=== PATIENT | male | born 1945 | race Hispanic/Latino ===

== ENCOUNTER → 2023-11-06 | Outpatient (CLI) | payer OTHER | END | disposition home or self-care (01) | LOC: OIH 10:34 | PROVIDERS: ATTEND Internal Medicine | DX: Z13.6 Encounter for screening for cardiovascular disorders (principal); K44.9 Diaphragmatic hernia without obstruction or gangrene | CPT/HCPCS: 75571 ==

== ENCOUNTER → 2023-12-05 | Outpatient (CLI) | payer OTHER | END | disposition home or self-care (01) | LOC: RAH 12:42 | PROVIDERS: ATTEND Internal Medicine | DX: I51.7 Cardiomegaly (principal); Z86.73 Personal history of transient ischemic attack (TIA), and cerebral infarction without residual deficits; I35.1 Nonrheumatic aortic (valve) insufficiency | CPT/HCPCS: 70450; 93306; 93880 ==

== ENCOUNTER → 2024-01-31 | Outpatient (CLI) | payer OTHER | END | disposition home or self-care (01) | LOC: RAH 09:34 | PROVIDERS: ATTEND Nurse Practitioner Family | DX: F10.20 Alcohol dependence, uncomplicated (principal) | CPT/HCPCS: 76700 ==

== ENCOUNTER → 2024-02-18 | Outpatient (CLI) | payer OTHER ==
[~2024-02-18] MED LIST: ASPI-1443 PO; LISI1TAB51 PO; METF-446 PO; MULT-1367 PO; OMEGA 3 PO; ROSU5TAB43 PO
[2024-02-18 12:18] LABS: CREATININE 1.3 mg/dL (0.5-1.3); POTASSIUM 4.1 mmol/L (3.5-5.1)
== END | disposition home or self-care (01) ==
LOC: LAB 08:39
PROVIDERS: ATTEND Internal Medicine Cardiovascular Disease
DX: G45.9 Transient cerebral ischemic attack, unspecified (principal)
CPT/HCPCS: 36415; 80048

== ENCOUNTER 2024-02-20 07:25 | Day surgery (SDC) | payer OTHER ==
[2024-02-19 09:13] LABS: BASOPHILS # (AUTO) 0.06 K/uL (0.00-0.20); BASOPHILS % (AUTO) 0.9 % (0.0-5.0); EOSINOPHILS # (AUTO) 0.18 K/uL (0.00-0.70); EOSINOPHILS % (AUTO) 2.7 % (0.0-8.0); HEMATOCRIT 40.1 % (42-54); IMMATURE GRANULOCYTE ABSOLUTE 0.02 K/uL (0-1); LYMPHOCYTES # (AUTO) 1.5 K/uL (1.0-4.8); LYMPHOCYTES % (AUTO) 21.4 % (21.0-51.0); MEAN CORPUSCULAR HEMOGLOBIN 29.1 pg (27.0-33.0); MEAN CORPUSCULAR HGB CONC 32.4 g/dL (32.0-36.0); MEAN CORPUSCULAR VOLUME 89.9 fL (79-99); MONOCYTES # (AUTO) 0.4 K/uL (0.1-1.0); MONOCYTES % (AUTO) 6.2 % (3.0-13.0); NEUTROPHILS # (AUTO) 4.7 K/uL (1.8-7.7); NEUTROPHILS % (AUTO) 68.5 % (40.0-77.0); PLATELET COUNT (AUTO) 231 K/uL (130-400); RED BLOOD CELL COUNT(AUTO) 4.46 MIL/uL (4.50-6.20); RED CELL DISTRIBUTION WIDTH 13.5 % (11.0-15.5); WHITE BLOOD COUNT (AUTO) 6.8 K/uL (4.8-10.8)
[2024-02-19 09:20] VITALS: BP 137/63; PULSE 60; RESP 18; TEMP 97.7
[2024-02-19 09:24] LABS: CREATININE 1.4 mg/dL (0.5-1.3)
[2024-02-19 09:29] LABS: INR 0.99 (0.85-1.15); PROTHROMBIN TIME 10.7 SEC (9.6-11.6)
[2024-02-19 09:31] LABS: PARTIAL THROMBOPLASTIN TIME 28.3 SEC (26.3-35.5)
[2024-02-20] VITALS (7 sets, daily range): BP systolic 108–124; BP diastolic 57–63; PULSE 50–62; RESP 12–15; TEMP 97.2–98.3
[~2024-02-20] VITALS: Ht 177.8 cm; Wt 90.9 kg
[2024-02-20] MEDS: LIDOCAINE HCL 2% VISCOUS 15 ML UDCUP PO ONE (08:00)
[2024-02-20] MEDS: 0.9%NACL 1000ML 1,000 ML IV ONE (09:58)
[2024-02-20] MEDS: FENTanyl CITRate PF 50 MCG/1 ML 2ML VIAL IVP ONE (12:01)
[2024-02-20] MEDS: MIDAZOLAM HCL 1 MG/ML 2ML VIAL IVP ONE (12:03)
== END 2024-02-20 12:30 | disposition home or self-care (01) ==
LOC: DAH 07:25 → EDSTATUS 09:00 → DAH 12:30
PROVIDERS: ATTEND Internal Medicine Cardiovascular Disease
DX: G45.9 Transient cerebral ischemic attack, unspecified (principal); I37.1 Nonrheumatic pulmonary valve insufficiency; I44.0 Atrioventricular block, first degree; I34.0 Nonrheumatic mitral (valve) insufficiency; I10 Essential (primary) hypertension; E11.9 Type 2 diabetes mellitus without complications; K21.9 Gastro-esophageal reflux disease without esophagitis; I70.0 Atherosclerosis of aorta; E78.5 Hyperlipidemia, unspecified; Z79.82 Long term (current) use of aspirin; Z79.84 Long term (current) use of oral hypoglycemic drugs; Z98.41 Cataract extraction status, right eye; Z79.899 Other long term (current) drug therapy
CPT/HCPCS: 80048; 85025; 85610; 85730; 36415; 93005; 82948; 93325; 93312; J3010; J7030; J2250; A4615; A4215; A4223 ×3; A4657; A7002; A4222; A4221; A4663; A4216; A4606; 99152; G0500

== ENCOUNTER → 2024-02-22 | Outpatient (CLI) | payer OTHER ==
[~2024-02-22] MED LIST changes: +IOHEXOL-350 75 ML VIAL IV ONE
== END | disposition home or self-care (01) ==
LOC: RAH 09:07
PROVIDERS: ATTEND Internal Medicine Cardiovascular Disease
DX: G45.9 Transient cerebral ischemic attack, unspecified (principal)
CPT/HCPCS: 70496; 70498; Q9967

== ENCOUNTER → 2024-02-28 | Outpatient (CLI) | payer OTHER ==
[~2024-02-28] MED LIST changes: -IOHEXOL-350 75 ML VIAL IV ONE
[2024-02-28 12:24] LABS: CREATININE 1.3 mg/dL (0.5-1.3); POTASSIUM 4.2 mmol/L (3.5-5.1)
== END | disposition home or self-care (01) ==
LOC: LAB 09:39
PROVIDERS: ATTEND Internal Medicine Cardiovascular Disease
DX: G45.9 Transient cerebral ischemic attack, unspecified (principal)
CPT/HCPCS: 36415; 80048

== ENCOUNTER → 2024-06-18 | Outpatient (CLI) | payer OTHER ==
[~2024-06-18] MED LIST changes: -ROSU5TAB43 PO; +ROSU5TAB51 PO
--- NOTE | 2024-06-18 12:54 | HMCIMG ---
UPPER GI TRACT, WO KUB REASON: Diaphragmatic hernia without obstruction or gangrene COMPARISON: None TECHNIQUE: Air contrast upper GI was performed to with fluoroscopic guidance. 9 short cine sequences were acquired. Fluoroscopy time was 0.7 minutes. FINDINGS: There is normal esophageal peristalsis. There is a moderate to hiatal hernia. Esophagus, stomach and duodenum appear otherwise unremarkable. There is no mass, ulceration or obstructing lesion. There is some mild gastroesophageal reflux during the exam. IMPRESSION: 1. Moderate to sized hiatal hernia with some mild intermittent reflux. 2. Otherwise unremarkable exam.
== END | disposition home or self-care (01) ==
LOC: RAH 06-10 08:54
PROVIDERS: ATTEND Internal Medicine
DX: K44.9 Diaphragmatic hernia without obstruction or gangrene (principal); K21.9 Gastro-esophageal reflux disease without esophagitis
CPT/HCPCS: 74240

== ENCOUNTER 2024-09-04 07:23 | Observation (INO) | payer OTHER ==
[2024-09-03 15:42] VITALS: BP 151/58; PULSE 60; RESP 18; TEMP 98.1
[2024-09-03 15:51] LABS: HEMATOCRIT 39.5 % (42-54); MEAN CORPUSCULAR HEMOGLOBIN 29.5 pg (27.0-33.0); MEAN CORPUSCULAR HGB CONC 32.7 g/dL (32.0-36.0); MEAN CORPUSCULAR VOLUME 90.2 fL (79-99); PLATELET COUNT (AUTO) 206 K/uL (130-400); RED BLOOD CELL COUNT(AUTO) 4.38 MIL/uL (4.50-6.20); RED CELL DISTRIBUTION WIDTH 13.7 % (11.0-15.5); WHITE BLOOD COUNT (AUTO) 5.8 K/uL (4.8-10.8)
[2024-09-03 16:02] LABS: CREATININE 1.3 mg/dL (0.5-1.3); POTASSIUM 4.3 mmol/L (3.5-5.1)
[2024-09-03 16:22] LABS: BASOPHILS # (AUTO) 0.02 K/uL (0.00-0.20); BASOPHILS % (AUTO) 0.3 % (0.0-5.0); EOSINOPHILS # (AUTO) 0.11 K/uL (0.00-0.70); EOSINOPHILS % (AUTO) 1.9 % (0.0-8.0); IMMATURE GRANULOCYTE ABSOLUTE 0.01 K/uL (0-1); LYMPHOCYTES # (AUTO) 1.4 K/uL (1.0-4.8); LYMPHOCYTES % (AUTO) 23.3 % (21.0-51.0); MONOCYTES # (AUTO) 0.4 K/uL (0.1-1.0); MONOCYTES % (AUTO) 6.3 % (3.0-13.0)
[~2024-09-04] VITALS: Ht 177.8 cm; Wt 89.9 kg
[2024-09-04] VITALS (20 sets, daily range): BP systolic 102–140; BP diastolic 46–67; PULSE 58–66; RESP 15–18; TEMP 97.3–98.2; O2SAT 97–99
[~2024-09-04 07:23] MED LIST changes: +GLIM2TAB30 PO; +PANT40TA54 PO; +PROBIOTIC PO
[2024-09-04] MEDS: metRONIDazole 500MG/100ML BAG 200 ML ONE (07:56)
[2024-09-04] MEDS: ceFAZolin SODIUM 2 GM VIAL ONE (07:56)
[2024-09-04] MEDS: 0.9%NACL 1000ML 1,000 ML IV ONE (07:56)
[2024-09-04] MEDS ORDERED: LIDOCAINE PF 100MG/5ML (2%) SYRINGE 5ML ONE (11:31)
[2024-09-04] MEDS ORDERED: dexaMETHasone SOD PHOSPHATE 10MG/ML 1ML VIAL ONE (11:31)
[2024-09-04] MEDS ORDERED: proPOFol 10 MG/ML 20ML VIAL IV ONE (11:32)
[2024-09-04] MEDS ORDERED: GLYCOPYRROLATE 0.2 MG/ML 5 ML VIAL ONE (11:32)
[2024-09-04] MEDS ORDERED: FENTanyl CITRate PF 50 MCG/1 ML 5ML AMP IV ONE (11:32)
[2024-09-04] MEDS ORDERED: NEOSTIGMINE METHYLSULFATE 1MG/ML IV ONE (11:32)
[2024-09-04] MEDS ORDERED: ondanSETRON 4MG INJ ONE (11:32)
[2024-09-04] MEDS ORDERED: rocuRONium bROMide 10MG/1ML 5ML VL ONE (11:32)
[2024-09-04] MEDS ORDERED: MIDAZOLAM HCL 1 MG/ML 2ML VIAL ONE (11:33)
[2024-09-04] MEDS ORDERED: BUPIvacaine/PF 0.5% 30ML VIAL ONE (12:23)
[2024-09-04] MEDS ORDERED: ALBUMIN (HUMAN) 5% 250 ML IV ONE (12:33)
[2024-09-04] MEDS ORDERED: ketaMINE 50MG/ML SYRINGE 50 MG/ML DISP.SYRIN ONE (12:33)
[2024-09-04] MEDS: ceFAZolin SODIUM 2 GM VIAL IVPB ONE (12:40)
--- NOTE | 2024-09-04 15:41 | OP ---
Operative Note: DATE OF PROCEDURE: 09/04/24 SURGEON: TAMIA ESPOSITO MD CHILD SUPPORT AGENT: Mendoza Esposito MD PAAlmitaC ANESTHESIA: General and Local ANESTHESIOLOGIST/STAFFING MANAGER: [facility] [place] team PREOPERATIVE DIAGNOSIS: Symptomatic cholelithiasis and symptomatic [id number] paraesophageal hiatal hernia POSTOPERATIVE DIAGNOSIS: As above. Calcified gallbladder wall in the fundus of the gallbladder versus large impacted stone. SYNOPSIS: See below. Operations performed without known complication PROCEDURE: 1. Robotic assisted paraesophageal hiatal hernia repair with mesh reinforcement 2. Nichole type fundoplication 3. Cholecystectomy with intraoperative cholangiogram 4. EGD ESTIMATED BLOOD LOSS: min, <30cc INDICATIONS: As above DESCRIPTION OF PROCEDURE: After standard precautions and preparations were undertaken a Veress needle and optical trocar used to enter the abdominal cavity. All other instruments were placed under direct vision. The robotic system was docked in the standard fashion. We will begin with a hiatal hernia portion of the case by opening pars flaccida identified the right benoit of the diaphragm. We are able to enter into the mediastinum during the late avascular plane and circumferentially mobilize the distal esophagus and proximal stomach. The patient had a large paraesophageal hernia sac containing the majority of the fundus and portion of the body of the stomach as well. By the end of our dissection after incising the hernia sac and reducing thick benign fatty tissue out of the mediastinum the GE junction rested well below the hiatus without any significant tension. The hernia defect was large greater than 10 cm in widest diameter. We started our repair by suturing the right and left crura back and reapproximation starting at the crossing fibers and working our way upward since the posterior esophageal wall. Care was taken not to over tighten. This was then reinforced with the mesh placement. The mesh was cut into a horseshoe fashion and placed as an overlay. We switched the mesh in place to prevent mesh migration and maximize tissue contact with the mesh. We then turned our attention to the fundoplication. We mobilized the fundus in anticipation of the fundoplication and pulled it through the retroesophageal window. Was wrapped circumferentially and was able to reach all the way across without tension so we sutured in a full fundoplication Nichole style. At several points throughout the procedure we examined with the EGD endoscopy to verify that the anatomy was appropriate. At the end of the case with regards to the hiatal hernia we examined that the hernia repair was not overly tightened and that the wrap was appropriately located. It was the esophageal mucosa and proximal stomach mucosa was healthy and well perfused with no signs of injury. We moved onto the cholecystectomy. After shifting some trocar positions we retracted the gallbladder fundus cephalad and began dissecting around the infundibulum. A critical view of safety was achieved identified a single arterial structure in a single cystic duct structure. This was confirmed with cholangiogram utilizing our firefly visual technology and infusion of IC-Green. We are able to see the ductal structures down to the junction of the common hepatic and common bile duct with no signs of filling defects. The duct and artery were both clipped and divided. Monopolar cautery was used to separate the gallbladder from the gallbladder fossa. At the end of the case all instrument counts were verified as correct including needles and sponges and the clips were verified to be in an appropriate location. There was no signs of bleeding or bile leak. TAMIA ESPOSITO MD Sep 04, 2024 15:41
[2024-09-04] MEDS: ENOXAPARIN SODIUM 40 MG/0.4 ML SYRINGE SQ SCH (15:58)
[2024-09-04] MEDS: ENOXAPARIN SODIUM 40 MG/0.4 ML SYRINGE SQ ONE (15:59)
[2024-09-04] MEDS ORDERED: PROCHLORPERAZINE 10MG/2ML INJ IV PRN (16:00)
[2024-09-04] MEDS ORDERED: ondanSETRON 4MG INJ IVP PRN (16:00)
[2024-09-04] MEDS ORDERED: ketOROlac 15MG/ML VIAL (15MG/ML) IV PRN (16:00)
[2024-09-04] MEDS: INSULIN humuLIN R 100 UNIT/ML 3ML SQ SCH (16:30)
[2024-09-04] MEDS: morPHINE 4 MG SYG IVP PRN (18:20)
[2024-09-04] MEDS: 1/2NS+20MEQ KCL/1000ML 1,000 ML IV SCH (19:12)
[2024-09-04] MEDS: LISINOPRIL 20 MG TABLET PO SCH (20:05)
[2024-09-04] MEDS: hydroCHLOROthiazide 25 MG TABLET PO SCH (20:05)
--- NOTE | 2024-09-04 20:05 | NUR ---
MEDS SHIFT ASSESSMENT DONE, PLEASE REFER TO CHART. PT TOLERATING CLEAR LIQUIDS AT THIS TIME. DUE MEDS ADMINISTERED, TOLERATED WELL. PT REFUSED INSULIN DOSE AT THIS TIME. KEPT RESTED AND COMFORTABLE IN BED. CALL LIGHT WITHIN REACH.
[2024-09-04] MEDS ORDERED: NON-FORMULARY MEDICATION 1 EACH (Lisinopril/Hydrochlorothiazide (Lisinopril-Hctz 20-12.5 m PO SCH (21:00)
--- NOTE | 2024-09-04 22:00 | NUR ---
WALK PCP ASSISTED PT TO WALK TO THE RESTROOM AND BACK. PT ABLE TO URINATE WITHOUT ANY PROBLEMS. PT TOLERATED WALKING WITH MINIMUM ASSIST. PLACED COMFORTABLY IN BED. CALL LIGHT WITHIN REACH.
[2024-09-05] MEDS: HYDROcod/acetaMINOPHEN 7.5/325 MG 15 ML UDCUP PO PRN (01:58)
[2024-09-05 04:00] VITALS: BP 101/52; PULSE 65; RESP 17; TEMP 97.6
--- NOTE | 2024-09-05 06:00 | NUR ---
ROUNDS PT SLEPT AT INTERVALS DURING THE SHIFT. NO DISTRESS NOTED. NO CONCERNS VERBALIZED. KEPT RESTED IN BED. FOR MORE CARE.
[2024-09-05 07:53] VITALS: BP 108/53; PULSE 55; RESP 18; TEMP 97.6
[2024-09-05 08:00] VITALS: O2SAT 95
[2024-09-05 11:41] VITALS: BP 106/51; PULSE 53; RESP 18; TEMP 98.3
--- NOTE | 2024-09-05 12:00 | NUR ---
MET W [facility]OS[facility] AND GINA JAMES. LIVES WITH SPOUSE, NUMBERS AND ADDRESS VERIFIED INDEPENDNEET, DRIVES, NO SERVICES OR DME. NO DC NEEDS ANTICIPATED Addendum: 09/05/24 at 1805 by MATHEW PIRES RN CM Amended: Links added.
--- NOTE | 2024-09-05 13:16 | DS ---
Discharge Summary HOSPITAL COURSE SUMMARY: [] PIPEFITTER(S): [] PROCEDURES: [] PROBLEM(S): [] DISCHARGE INSTRUCTIONS: [] Home Meds Reported Medications [Probiotic] No Conflict Check, 1 TAB PO DAILY 09/03/24 Glimepiride (Glimepiride) 2 Mg Tablet, 1 MG PO AM, TAB 09/03/24 Pantoprazole Sodium (Pantoprazole Sodium) 40 Mg Tablet.dr, 40 MG PO AM, TAB 09/03/24 Rosuvastatin Calcium (Rosuvastatin Calcium) 5 Mg Tablet, 5 MG PO DAILY, TAB 02/19/24 [[place] 3] No Conflict Check, 3200 MG PO DAILY 02/19/24 Aspirin (Aspirin EC) 81 Mg Tablet.dr, 81 MG PO DAILY, TAB 02/19/24 Multivitamin (Multivitamin) 1 Each Tablet, 1 EACH PO DAILY, TAB 02/19/24 Metformin HCl (Metformin HCl) 1,000 Mg Tablet, 1000 MG PO BID, TAB 02/19/24 Lisinopril/Hydrochlorothiazide (Lisinopril-Hctz 20-12.5 mg Tab) 20 Mg-12.5 Mg Tablet, 1 EACH PO BID, TAB 02/19/24 MONICA BARBOUR [employer] Sep 05, 2024 13:16
--- NOTE | 2024-09-05 14:05 | NUR ---
PATIENT DISCHARGED HOME ID BAND AND IV REMOVED. DISCHARGE INSTRUCTIONS EXPLAINED AND GIVEN TO PATIENT. DIET INSTRUCTIONS GIVEN TO PATIENT. PATIENT VERBALIZED UNDERSTANDING. BELONGINGS PACKED AND TAKEN BY PATIENT. WHEELED DOWN TO PRIVATE CAR.
== END 2024-09-05 14:05 | disposition home or self-care (01) ==
LOC: DAH 07:23 → DAHIP 07:24 → DAH 07:24 → INTOOBSV 07:24 → 3AH 16:30
PROVIDERS: ADMIT Surgery; ATTEND Surgery
DX: K80.20 Calculus of gallbladder without cholecystitis without obstruction (principal); K44.9 Diaphragmatic hernia without obstruction or gangrene; K22.70 Barrett's esophagus without dysplasia; E78.5 Hyperlipidemia, unspecified; I10 Essential (primary) hypertension; E11.9 Type 2 diabetes mellitus without complications; E03.9 Hypothyroidism, unspecified; Z79.899 Other long term (current) drug therapy
CPT/HCPCS: 80048; 85025; 86850; 86900; 86901; 36415; 96372 ×2; 96374; 47563; 43282; 82948 ×5; 88304; 74300; A6260; J1815; G0378 ×22; A4223 ×2; A4600; A4663; J7030 ×2; A4215 ×2; P9045; J3480 ×2; J3010; J1100; J3490 ×4; J2003; J2250; J2704; J2405; J2270; J2710; J0665 ×2; J1650 ×2; J0690 ×2; A4930 ×4; C1781; A4213; A4222; A4221; A4216; 43235